=== PATIENT | female | born 1960 | race Caucasian/White ===

== ENCOUNTER 2022-05-07 09:18 | Emergency (ER) | payer SELFPAY ==
[2022-05-07 09:25] VITALS: BP 113/60; PULSE 89; RESP 17; TEMP 36.2; O2SAT 94
--- NOTE | 2022-05-07 09:40 | W.ED.GENAD ---
Discharge Plan Disposition Patient Disposition: HOME Condition: Improving Discharge Details Clinical Impression: Cellulitis of left earlobe ED Provider: Francisco Faith Home Meds and New Rx's Prescriptions: New bacitracin zinc-polymyxin B 500-10,000 unit/gram ointment 1 applic topical Q12H 10 Days Qty: 28.3 0RF Rx Instructions: Apply to L ear 2x per day x 10 days levofloxacin 500 mg tablet 500 mg PO DAILY 7 Days Qty: 7 0RF Discharge Instructions Instructions: Cellulitis (ED) Additional Instructions: Please follow-up with your doctor upon your return to [place] for recheck. Return or seek nearest healthcare provider for any acute concerns in the interim. Apply antibiotic ointment 2 times daily for 10 days. You are given the first dose of antibiotic in the emergency department then should complete a further 1 weeks course. Medical Decision Making 61-year-old female states she has had recurrent infections around her ear in the past. She was treated with a course of antibiotics and finished 2 weeks ago. She recently drove here from [place] and is returning in 1 week's time. Today she has recurrent retroauricular cellulitis with soft tissue edema. Discussed with her that I would elect to treat with both topical antibiotic as well as a course of oral Levaquin given her intolerance of penicillins. She will follow-up with primary care on return to [place], return to ER for recheck while in the area if needed HPI General Mode of arrival: ambulatory. Date/Time Provider Initiated Documentation: 05/07/22 09:22. Limitations to Documentation: no limitations. Information obtained by: patient. History of Present Illness 61 year old F presents to the emergency department with the chief complaint of Left ear infection, described as moderate, Quality is described as dull and constant, and is localized to the head, face and left. Patient reports no radiation. Patient started experiencing this day(s) and it has been constant. No relieving factors improve symptom(s), No exacerbating factors reported . Patient notes denies fever/chills and headaches. Patient did receive the following treatments prior to arrival, none Related Data Home Medications Medication Instructions Recorded Confirmed bacitracin zinc 500 unit-polymyxin 1 applic topical Q12H 10 days 05/07/22 B 10,000 unit/gram topical ointment #28.3 grams levofloxacin 500 mg tablet 500 mg PO DAILY 7 days #7 tabs 05/07/22 Previous Rx's Medication Instructions Recorded bacitracin zinc 500 unit-polymyxin 1 applic topical Q12H 10 days 05/07/22 B 10,000 unit/gram topical ointment #28.3 grams levofloxacin 500 mg tablet 500 mg PO DAILY 7 days #7 tabs 05/07/22 Allergies Allergy/AdvReac Type Severity Reaction Status Date / Time morphine Allergy Severe Other (See Unverified 05/07/22 09:36 Comment) amitriptyline AdvReac Mild Visual Unverified 05/07/22 09:36 Disturbances Penicillins AdvReac Mild Skin Rash Unverified 05/07/22 09:36 General Stated Complaint: EarProblem HIREN: 4 Review of Systems Narrative: No fever, difficulty swallowing. Similar in the past and finished antibiotics 2 weeks ago. Returning to [place] in 1 week. Sick systems were reviewed and [facility] All Active Problems (Updated 05/07/22 @ 09:43 by Francisco Faith MD) Cellulitis of left earlobe (Acute) Social History Smoking/Tobacco Use Status: Never Smoking risk assessment performed?: Yes Alcohol Intake: never Drug use: Never Substance use type: does not use Do you feel safe at home: Yes Do you feel safe in your relationship?: Yes Exam Narrative Exam Narrative: GEN: awake, alert, oriented 3. Pleasant, well groomed, interactive. HEAD: Normocephalic, atraumatic ENT: Mucous membranes moist, oropharynx unremarkable, tympanic membranes are visualized bilaterally with no evidence of distention, significant effusion or erythema. The left earlobe in the retroauricular fold demonstrates erythema, crusting of the skin and surrounding edema that is tender EYES: PERRL, EOMI NECK: Full ROM, no KELLY, no menigismus CHEST/RESP: Nontender, clear to auscultation bilateral, no wheeze/rhonchi/rales CARDIOVASCULAR: RRR, no murmur, rub karly. 2+ Rad pulse bilateral EXT: Full ROM, no edema, no rash Neuro: Grossly normal neurologic exam, conversant, interactive. Psych: Speech fluent, thoughts congruent, affect normal Course Vital Signs Vital signs: Vital Signs Temperature 36.2 C L 05/07/22 09:25 Pulse 89 05/07/22 09:25 Respiratory Rate 17 09/22/22 09:25 Blood Pressure 113/60 05/07/22 09:25 Pulse Oximetry 94 05/07/22 09:25 Temperature 36.2 C L 05/07/22 09:25 Temperature Source Temporal Artery Scan 05/07/22 09:25 Pulse 89 05/07/22 09:25 Respiratory Rate 17 05/07/22 09:25 Respiratory Effort Non-Labored 05/07/22 09:29 Blood Pressure 113/60 05/07/22 09:25 Blood Pressure Position Sitting 05/07/22 09:25 Pulse Oximetry 94 05/07/22 09:25 Oxygen Delivery Method Room Air 05/07/22 09:25 Oxygen Flow Rate 0 05/07/22 09:25 Pain Level 6 05/07/22 09:29
[2022-05-07] MEDS: levoFLOXacin 500 MG TAB PO (09:44)
== END 2022-05-07 09:53 | disposition home or self-care (01) ==
LOC: ER 09:52
PROVIDERS: Emergency Provider Emergency Medicine
DX: H60.12 Cellulitis of left external ear (principal)
CPT/HCPCS: 99283; 99284